=== PATIENT | male | born 1940 | race Caucasian/White ===

== ENCOUNTER 2017-09-16 17:53 | Inpatient (IN) | payer MEDICARE, OTHER ==
[~2017-09-16] VITALS: Ht 177.8 cm; Wt 113.4 kg
[2017-09-16] MEDS ORDERED: GLUCOPHAGE500 MG PO (18:20)
[2017-09-16 18:23] VITALS: BP 113/66; BMI 35.9
[2017-09-16 19:59] VITALS: BP 152/77
[2017-09-16 23:24] VITALS: BP 145/61
[2017-09-17 03:50] VITALS: BP 142/63
[2017-09-17 05:52] LABS: BASOPHILS 0.2 % (0-2); EOSINOPHILS 4.2 % (0-7); HEMATOCRIT 31.4 % (42.0-54.0); HEMOGLOBIN 10.3 g/dL (13.5-17.5); IMMATURE GRANULOCYTES 0.2 % (0-5); MCH 30.7 pg (26.0-34.0); MCHC 32.8 g/dL (31.0-37.0); MCV 93.5 fL (80.0-100.0); MEAN PLATELET VOLUME 8.6 fL (7.4-10.4); MONOCYTES 9.4 % (2-11); PLATELET COUNT 199 10x3/uL (130-400); RBC 3.36 10x6/uL (4.20-6.10); WBC 8.8 10x3/uL (4.8-10.8)
[2017-09-17 06:04] LABS: APTT 25.8 SECONDS (22.8-39.4); INR 1.13 (0.85-1.17); PROTIME 14.1 SECONDS (11.6-15.0)
[2017-09-17 06:27] LABS: ANION GAP 12.2 mmol/L (8-16); CALCIUM 8.3 mg/dL (8.5-10.1); CARBON DIOXIDE 22.6 mmol/L (21.0-32.0); CREATININE - SERUM 1.5 mg/dL (0.6-1.3); POTASSIUM - SERUM 4.8 mmol/L (3.5-5.1)
[2017-09-17 06:48] VITALS: BP 137/68
[2017-09-17] MEDS ORDERED: HYDROCODON-ACE1 EAC7 PO (09:28)
[2017-09-17] MEDS ORDERED: BACTRIM DS TABL1 TAB PO (09:28)
[2017-09-17 10:22] VITALS: Ht 177.8 cm; Wt 113.4 kg
[2017-09-17 12:28] VITALS: BP 154/60
== END 2017-09-17 12:32 | disposition home or self-care (01) | DRG 345 ==
LOC: D.MS 17:53
PROVIDERS: Surgery
PROC: 0D9P0ZZ Drainage of Rectum, Open Approach (ICD-10-PCS; principal; 2017-09-16)
DX: K61.1 Rectal abscess (principal); L02.01 Cutaneous abscess of face; E11.9 Type 2 diabetes mellitus without complications